=== PATIENT | female | born 1985 | race Caucasian/White ===

== ENCOUNTER 2018-09-04 09:55 | Observation (INO) | payer OTHER ==
[2018-09-04 10:17] VITALS: BP 123/80
[2018-09-04] MEDS ORDERED: PREN1TAB80 PO (10:19)
== END 2018-09-04 12:05 | disposition home or self-care (01) ==
LOC: 4S 09:55
PROVIDERS: ADMIT Obstetrics & Gynecology; ATTEND Obstetrics & Gynecology
DX: O62.9 Abnormality of forces of labor, unspecified (principal); Z3A.38 38 weeks gestation of pregnancy
CPT/HCPCS: 81002; G0378

== ENCOUNTER 2018-09-07 10:50 | Inpatient (IN) | payer OTHER ==
[~2018-09-07] VITALS: Ht 156 cm; Wt 83.5 kg
[~2018-09-07 10:50] MED LIST: PREN1TAB80 PO
[2018-09-07] MEDS ORDERED: OXYTOCIN 30 UNITS/LACT RINGERS 500 ML IV ONE (11:22)
[2018-09-07] MEDS ORDERED: RINGERS SOLUTION,LACTATED 1,000 ML IV PRN (11:22)
[2018-09-07] MEDS ORDERED: FentaNYL CITRATE-PF 100 MCG/2 ML VIAL IVP PRN (11:30)
[2018-09-07] MEDS ORDERED: CITRIC ACID/SODIUM CITRATE 30 ML SOLUTION UDCUP PO PRN (11:30)
[2018-09-07] MEDS ORDERED: LIDOCAINE/PF 1% 30 ML VIAL INJ PRN (11:30)
[2018-09-07] MEDS ORDERED: METOCLOPRAMIDE HCL 5 MG/ML 2 ML VIAL IVP PRN (11:30)
[2018-09-07] MEDS: RINGERS SOLUTION,LACTATED 1,000 ML IV SCH ×2 (12:06→19:28)
[2018-09-07 12:07] LABS: BASOPHILS % (AUTO) 0.8 % (0.0-2.0); EOSINOPHILS % (AUTO) 0.8 % (1.0-6.0); HEMATOCRIT 40.2 % (36-46); HEMOGLOBIN 13.7 g/dL (12.0-16.0); LYMPHOCYTES % (AUTO) 18.9 % (22.0-44.0); MEAN CORPUSCULAR HEMOGLOBIN 31.4 pg (26.0-34.0); MEAN CORPUSCULAR VOLUME 93 fL (80-100); MONOCYTES # (AUTO) 0.8 K/uL (0.1-1.0); MONOCYTES % (AUTO) 7.9 % (2.0-9.0); NEUTROPHILS # (AUTO) 7.5 K/uL (1.8-7.7); NEUTROPHILS % (AUTO) 71.6 % (40.0-70.0); PLATELET COUNT (AUTO) 318 K/uL (150-450); RED BLOOD CELL COUNT(AUTO) 4.35 MIL/uL (4.00-5.20); RED CELL DISTRIBUTION WIDTH 14.4 % (11.5-14.5)
[2018-09-07 12:12] VITALS: BP 122/71
[2018-09-07] MEDS ORDERED: PREN1TAB80 PO (12:14)
[2018-09-07] MEDS ORDERED: OXYTOCIN 30 UNITS/LACT RINGERS 500 ML IV PRN (12:15)
[2018-09-07] MEDS ORDERED: ONDANSETRON HCL 4 MG/2 ML VIAL IVP PRN (19:45)
[2018-09-07] MEDS ORDERED: DiphenhydrAMINE HCL 50 MG/ML VIAL IVP PRN (19:45)
[2018-09-07] MEDS ORDERED: ROPIVACAINE HCL/PF 0.2% 100 ML ED PRN (19:45)
[2018-09-07] MEDS ORDERED: OXYGEN THERAPY IH SCH (20:00)
[2018-09-07] MEDS ORDERED: ROPIVACAINE HCL/PF 0.2% 100 ML ED ONE (20:50)
[2018-09-08] MEDS: RINGERS SOLUTION,LACTATED 1,000 ML IV SCH (02:30)
[2018-09-08] MEDS ORDERED: OXYTOCIN 30 UNITS/LACT RINGERS 500 ML IV ONE (07:03)
[2018-09-08] MEDS ORDERED: GLYCERIN/WITCH HAZEL LEAF 40 PADS JAR TP PRN (07:15)
[2018-09-08] MEDS ORDERED: OxyCODONE HCL/ACETAMINOPHEN 5-325 MG TABLET PO PRN ×2 (07:15)
[2018-09-08] MEDS ORDERED: LIDOCAINE/PF 1% 30 ML VIAL INJ PRN (07:15)
[2018-09-08] MEDS ORDERED: LANOLIN 7 GM OINTMENT TP PRN (07:15)
[2018-09-08] MEDS ORDERED: BENZOCAINE 20%/MENTHOL 56 GM SPRAY CANISTER TP PRN (07:15)
[2018-09-08] MEDS: MAGNESIUM HYDROXIDE SUSPENSION 30 ML UDCUP PO PRN (08:21)
[2018-09-08] MEDS: IBUPROFEN 800 MG TABLET PO PRN ×2 (08:21→17:09)
[2018-09-09] MEDS: IBUPROFEN 800 MG TABLET PO PRN (02:44)
[2018-09-09 05:31] LABS: BASOPHILS % (AUTO) 0.8 % (0.0-2.0); EOSINOPHILS % (AUTO) 1.1 % (1.0-6.0); HEMATOCRIT 33.3 % (36-46); HEMOGLOBIN 11.2 g/dL (12.0-16.0); LYMPHOCYTES % (AUTO) 20.7 % (22.0-44.0); MEAN CORPUSCULAR HEMOGLOBIN 31.6 pg (26.0-34.0); MEAN CORPUSCULAR HGB CONC 33.7 G/dL (31.0-37.0); MEAN CORPUSCULAR VOLUME 94 fL (80-100); MONOCYTES # (AUTO) 1.1 K/uL (0.1-1.0); MONOCYTES % (AUTO) 7.7 % (2.0-9.0); NEUTROPHILS % (AUTO) 69.7 % (40.0-70.0); PLATELET COUNT (AUTO)-OB 279 K/uL (150-450); RED BLOOD CELL COUNT(AUTO) 3.54 MIL/uL (4.00-5.20); RED CELL DISTRIBUTION WIDTH 14.7 % (11.5-14.5)
[2018-09-09] MEDS: MAGNESIUM HYDROXIDE SUSPENSION 30 ML UDCUP PO PRN (08:49)
[2018-09-09] MEDS ORDERED: IBUP-2071 PO (13:18)
[2018-09-09] MEDS ORDERED: DSS100 PO (13:19)
[2018-09-09] MEDS ORDERED: FERR-89 PO (13:20)
== END 2018-09-09 14:10 | disposition home or self-care (01) | DRG 807 ==
LOC: 4S 10:50 → OBSVTOIN 10:50
PROVIDERS: ADMIT Obstetrics & Gynecology; ATTEND Obstetrics & Gynecology
PROC: 10E0XZZ Delivery of Products of Conception, External Approach (ICD-10-PCS; principal; 2018-09-08)
PROC: 0KQM0ZZ Repair Perineum Muscle, Open Approach (ICD-10-PCS; 2018-09-08)
PROC: 3E0R3BZ Introduction of Anesthetic Agent into Spinal Canal, Percutaneous Approach (ICD-10-PCS; 2018-09-08)
PROC: 00HU33Z Insertion of Infusion Device into Spinal Canal, Percutaneous Approach (ICD-10-PCS; 2018-09-08)
DX: O69.81X0 Labor and delivery complicated by cord around neck, without compression, not applicable or unspecified (principal); Z37.0 Single live birth; O70.1 Second degree perineal laceration during delivery; Z3A.39 39 weeks gestation of pregnancy
CPT/HCPCS: 86850; 86900; 86901; J2590; J2795; J7120